=== PATIENT | female | born 1965 | race Caucasian/White ===

== ENCOUNTER 2016-11-16 12:21 | Observation (INO) ==
[2016-11-16 13:09] LABS: Basophils # 0.1 K/mcL (0.0-0.2); Basophils % 0.5 %; Eosinophils # 0.1 K/mcL (0.0-0.6); Hematocrit 41.4 % (35.3-44.9); Immature Granulocytes % 0.5 % (0-4); Lymphocytes # 2.6 K/mcL (0.6-4.6); Lymphocytes % 20.1 %; Mean Corpuscular HGB Conc 31.4 g/dL (31.6-35.5); Mean Corpuscular Hemoglobin 27.8 pg (28.0-33.3); Mean Corpuscular Volume 88.5 fL (83.0-100.0); Mean Platelet Volume 10.4 fL (9.4-12.4); Monocytes # 0.8 K/mcL (0.0-1.3); Monocytes % 6.1 %; Neutrophils # 9.3 K/mcL (1.6-8.9); Platelet Count 253 K/mcL (140-400); Red Blood Count 4.68 M/mcL (3.82-4.97); Red Cell Distribution Width 13.9 % (11.5-14.5); Segmented Neutrophils % 71.8 %
[2016-11-16 13:21] LABS: BUN/Creatinine Ratio 11 (6-26); Blood Urea Nitrogen 12 mg/dL (7-20); Calcium 9.9 mg/dL (8.6-10.8); Carbon Dioxide 23 mEq/L (19-29); Chloride 103 mEq/L (98-109); Glucose 185 mg/dL (70-99); Osmolality,Calculated 291 (280-300); Potassium 3.6 mEq/L (3.5-4.5); Sodium 138 mEq/L (136-145); eGFR For African Americans > 60 (> 60); eGFR For Non-African Americans 55 (> 60)
--- NOTE | 2016-11-16 14:04 | Emergency Department Note ---
Disposition Clinical Impression: Chest pain Qualifiers: Chest pain type: unspecified Qualified Code(s): R07.9 - Chest pain, unspecified Disposition: Admitted As Inpatient Condition: Fair Referrals: Rolf Larkin DO [Primary Care Provider] - Forms: ED Satisfaction Letter Time of Disposition: 14:06 Chest Pain HPI - General Chief Complaint: ED Chest Pain Stated Complaint: Chest Pain Time Seen by Provider: 11/16/16 14:00 Source: patient Limitations: no limitations Vital Signs Reviewed: Yes Nursing Notes Reviewed: Yes - History of Present Illness HPI Narrative: 51-year-old female comes in complaining of chest pain. Patient states she did crack cocaine Wednesday night and Wednesday morning developed chest pain following that. She does have multiple cardiac risk factors including diabetes, hypertension, family history. No recent cardiac workup. Pt complaint: chest pain Onset (ago): day(s) Duration: intermittent Onset: during rest Pain Location: substernal, left chest Severity scale (1-10): 8 Quality: tightness Pain Radiation: none Improves with: nothing Worsens with: nothing Associated symptoms: Denies: syncope, fever, cough Treatments prior to arrival chest pain: none - Related Data Home Medications Medication Instructions Recorded Confirmed Omeprazole [PriLOSEC] 20 mg PO BIDAC 10/04/15 10/04/15 cephALEXin [Keflex] 500 mg PO QID 10/04/15 10/04/15 glipiZIDE [Glipizide] 10 mg PO BID 10/04/15 10/04/15 hydroCHLOROthiazide 50 mg PO QAM 10/04/15 10/04/15 [Hydrochlorothiazide] Previous Rx's Medication Instructions Recorded Albuterol Sulfate [Albuterol 2 puff IH Q4HR PRN #1 unit 07/13/16 Inhaler] Dicyclomine [Bentyl] 10 mg PO QID PRN #40 capsule 10/16/16 Ondansetron ODT [Zofran ODT] 4 mg SL Q6HR PRN #14 tab.rapdis 10/16/16 Allergies Allergy/AdvReac Type Severity Reaction Status Date / Time No Known Allergies Allergy Verified 10/16/16 14:01 All systems ED: reviewed and negative except as stated. Constitutional: Denies: fever, chills, weakness, weight change Eyes: Denies: eye pain, eye discharge, vision change ENT ED: Denies: ear pain, throat pain, dental pain, hearing loss, epistaxis, congestion, dysphagia Cardiovascular: Reports: chest pain. Denies: palpitations, dyspnea on exertion , edema, syncope Respiratory: Denies: cough, dyspnea, wheezes, hemoptysis, stridor Gastrointestinal: Denies: abdominal pain, nausea, vomiting, diarrhea, constipation, hematemesis, melena, hematochezia Genitourinary: Denies: dysuria, frequency, hematuria, discharge Musculoskeletal: Denies: back pain, neck pain, arthralgia, myalgia Integumentary: Denies: rash, abrasion, lesions Neurological: Denies: headache, weakness, numbness, paresthesias, confusion, abnormal gait, vertigo Psychiatric: Denies: anxiety, depression, suicidal thoughts, homicidal thoughts , auditory hallucinations, visual hallucinations Endocrine: Denies: fatigue Hematological/Lymphatic: Denies: easy bleeding, easy bruising Allergic/Immunologic: Denies: facial swelling, urticaria Chest Pain PMH - Past Medical History Medical history: Reports: arthritis, COPD, diabetes, hypertension, liver disease , myocardial infarction, other Psychiatric history: Reports: depression, PTSD 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 - Social History Smoking Status: Former smoker Alcohol use: Reports: none Drug use: Reports: cocaine Physical Exam - General Limitations: no limitations General appearance: alert - Head Head exam: atraumatic, normocephalic, normal inspection - Eye Eye exam: Present: normal appearance, PERRL, EOMI - ENT ENT exam: normal exam, normal oropharynx, mucous membranes moist - Neck Neck exam: Present: normal inspection, full ROM, trachea midline - Chest Chest inspection: Present: normal inspection, symmetric chest wall rise - Respiratory Respiratory exam: Present: normal lung sounds bilaterally - Cardiovascular Cardiovascular exam: Present: regular rate, normal rhythm, normal heart sounds - Abdominal Exam Abdominal exam: Present: soft, Non-Tender. Absent: tenderness, distention, guarding, rebound, rigidity - Extremities Exam Extremities exam: Present: normal inspection, full ROM. Absent: tenderness, pedal edema - Expanded Lower Extremity Exam Neurovascular/Tendon exam: Absent: motor deficit, sensory deficit, tendon deficit Gait: observed and normal - Back Exam Back exam: Present: normal inspection, full ROM. Absent: tenderness - Neurological Exam Neurological exam: Present: alert, oriented X3 - Psychiatric Psychiatric exam: Present: normal affect, normal mood - Skin Skin exam: Present: warm, dry, intact, normal color Course - Reevaluation(s) Reevaluation #1: 51-year-old with multiple risk factors including cocaine use he developed some chest pain. Patient will be admitted for further evaluation and treatment. Time: 15:35 - Consultations Consultation #1: Discussed with Dr. Hanson, admit Time: 15:36 Vital Signs Temperature 97.8 F 11/16/16 12:26 Pulse Rate 106 11/16/16 12:26 Respiratory Rate 20 11/16/16 12:26 Blood Pressure 127/86 11/16/16 12:26 O2 Sat by Pulse Oximetry 98 11/16/16 12:26 Temperature 97.8 F 11/16/16 12:26 Pulse Rate 79 11/16/16 15:29 Respiratory Rate 16 11/16/16 15:29 Blood Pressure 94/70 11/16/16 15:29 O2 Sat by Pulse Oximetry 96 11/16/16 15:29 Oxygen Delivery Oxygen Delivery Room Air Chest Pain - Lab Data Result diagrams: 11/16/16 13:02 11/16/16 13:02 Lab Results 11/16/16 11/16/16 11/16/16 Range/Units 13:02 13:02 13:02 WBC 13.0 H (4.3-11.1) K/mcL RBC 4.68 (3.82-4.97) M/mcL Hgb 13.0 (11.5-15.4) g/dL Hct 41.4 (35.3-44.9) % MCV 88.5 (83.0-100.0) fL MCH 27.8 L (28.0-33.3) pg MCHC 31.4 L (31.6-35.5) g/dL RDW 13.9 (11.5-14.5) % Plt Count 253 (140-400) K/mcL MPV 10.4 (9.4-12.4) fL Immature Gran % 0.5 (0-4) % Seg Neutrophils % 71.8 % Lymphocytes % 20.1 % Monocytes % 6.1 % Eosinophils % 1.0 % Basophils % 0.5 % Neutrophils # 9.3 H (1.6-8.9) K/mcL Lymphocytes # 2.6 (0.6-4.6) K/mcL Monocytes # 0.8 (0.0-1.3) K/mcL Eosinophils # 0.1 (0.0-0.6) K/mcL Basophils # 0.1 (0.0-0.2) K/mcL Sodium 138 (136-145) mEq/L Potassium 3.6 (3.5-4.5) mEq/L Chloride 103 (98-109) mEq/L Carbon Dioxide 23 (19-29) mEq/L BUN 12 (7-20) mg/dL Creatinine 1.07 (0.57-1.11) mg/dL Est GFR ( Amer) > 60 (> 60) Est GFR (Non-Af Amer) 55 L (> 60) BUN/Creatinine Ratio 11 (6-26) Glucose 185 H (70-99) mg/dL Calculated Osmolality 291 (280-300) Calcium 9.9 (8.6-10.8) mg/dL Troponin I 0.00 (0-0.03) ng/mL - EKG Data EKG attestation: Yes I reviewed and interpreted this EKG. EKG shows normal: sinus rhythm Rate: normal Rhythm: NSR Interpretation: no acute changes Heart Score - Score History: Moderately Suspicious EKG: Non Specific repolarisation Disturbance Age: 45-65 Risk Factors: Equal/Greater than 3 risk factor or history of atherosclerotic disease Troponin: Less than normal limit HEART Score Total: 5
[2016-11-16 15:43] LABS: Bilirubin,Urine Negative (Negative); Blood,Urine Trace (Negative); Clarity,Urine Clear (Clear); Color,Urine Yellow (Yellow); Glucose,Urine (UA) Normal (Normal); Ketones,Urine Negative (Negative); Leukocyte Esterase,Urine Negative (Negative); Nitrite,Urine Negative (Negative); PH,Urine 5.5 pH Units (5.0-8.0); Protein,Urine Negative (Neg-Trace); Specific Gravity,Urine 1.019 (1.010-1.025); Urobilinogen,Urine Normal (Normal)
[2016-11-16 15:44] LABS: Bacteria,Urine None Seen per hpf (None-Few); Hyaline Casts,Urine None Seen per lpf (None-Few); RBC,Urine 0-3 per hpf (0-3); Squamous Epithelial Cell,Urine Many per lpf (None-Few); WBC,Urine 0-3 per hpf (0-3)
[2016-11-16 15:49] LABS: Amphetamine Screen,Urine Negative ng/mL (Cutoff=1000); Barbiturate Screen,Urine Negative ng/mL (Cutoff=200); Benzodiazepines Screen,Urine Negative ng/mL (Cutoff=200); Cannabinoid Screen,Urine Negative ng/mL (Cutoff = 50); Cocaine Screen,Urine Positive ng/mL (Cutoff= 300); Opiate Screen,Urine Negative ng/mL (Cutoff=300); Phencyclidine Screen,Urine Negative ng/mL (Cutoff=25)
[2016-11-16] MEDS ORDERED: Artificial Tears SOLN 15 ML BOTTLE OP PRN (17:55)
[2016-11-16] MEDS ORDERED: Naloxone 0.4 MG/ML INJ IVP PRN (18:06)
[2016-11-16] MEDS ORDERED: *HR* HYDROcodone/Acet 5/325 mg TABLET PO PRN (18:06)
[2016-11-16] MEDS ORDERED: Acetaminophen 325 MG TABLET PO PRN (18:06)
[2016-11-16] MEDS ORDERED: Ondansetron 4 MG/2 ML VIAL IVP PRN (18:06)
--- NOTE | 2016-11-16 18:10 | Event Note ---
Date of Encounter: 11/16/16 Time of Encounter: 17:00 I personally interviewed and examined this pt. I agree with the findings, assessment and plan of POOJA Dewey. Will add on a D Dimer and if positive order a CT chest. Agree with stress test if PE ruled out. Pt counselled about cardiac risk and other health risks associated with cocaine use. She also has a mild leukocytosis but no sx of infection. She denies using IV drugs.
--- NOTE | 2016-11-16 18:37 | Internal Med History&Physical ---
Date of Encounter: 11/16/16 Time of Encounter: 16:00 Assessment and Plan (1) Chest pain Current visit: Yes Status: Acute Patient presents with acute chest pain after smoking crack cocaine on Wednesday and Wednesday. Patient states she did the same thing in 2000 and was diagnosed with an CA. Patient's risk factors include diabetes, hypertension, obesity, and previous myocardial infarction. Patient denies any recent cardiac work-up. Patient describes chest pain as sharp and stabbing and centralized in her chest with radiation to her back that began yesterday. Initial troponin is 0.00. Will trend x2. Echocardiogram ordered. Patient placed on continuous cardiac telemetry and supplemental O2 with SpO2 monitoring. Cardiology consult ordered. Qualifiers: Chest pain type: other chest pain Qualified Code(s): R07.89 - Other chest pain; R07.8 - Other chest pain (2) Leukocytosis Current visit: Yes Status: Acute Patient presents with acute leukocytosis on admission with WBC of 13.0 which is most likely reactionary due to recent two-day use of crack cocaine. Patient is asymptomatic for infection and denies recent illness. Blood cultures x2 ordered. U/A ordered and is not indicative for culture. Will monitor blood culture results and administer antibiotics if warranted. Follow-up labs ordered. Qualifiers: Leukocytosis type: unspecified Qualified Code(s): D72.829 - Elevated white blood cell count, unspecified (3) Cocaine abuse Current visit: Yes Status: Chronic Patient reports hx of cocaine abuse with most recent being Wednesday and Wednesday. Patient states she smoked crack cocaine for two days and developed chest pain. She reports same situation in 2000 when she had her CA when she developed chest pain post-cocaine use. Patient states she is currently in rehab. SW consult ordered to assess patient's needs for post-discharge. (4) COPD (chronic obstructive pulmonary disease) Current visit: Yes Status: Chronic Patient presents with history of chronic COPD. Currently stable. Will administer DuoNeb's every 6 PRN for SOB as needed. Qualifiers: COPD type: unspecified COPD Qualified Code(s): J44.9 - Chronic obstructive pulmonary disease, unspecified (5) Diabetes Current visit: Yes Status: Chronic Patient presents with history of chronic diabetes controlled by oral antihyperglycemic medications. Will hold patient's by mouth medications and administer low-dose correction insulin sliding scale with hypoglycemic protocol. Blood glucose measuring ACHS. A1c ordered in a.m. labs. Qualifiers: Diabetes mellitus type: type 2 Diabetes mellitus complication status: with unspecified complications Diabetes mellitus halfway insulin use: without terminal superintendent use Qualified Code(s): E11.8 - Type 2 diabetes mellitus with unspecified complications (6) GERD (gastroesophageal reflux disease) Current visit: Yes Status: Chronic Patient stands with history of chronic gastroesophageal reflux disease. IVP Zofran every 6 when necessary and IVP Protonix 40 mg twice a day ordered. Qualifiers: Esophagitis presence: esophagitis presence not specified Qualified Code(s) : K21.9 - Gastro-esophageal reflux disease without esophagitis (7) HTN (hypertension) Current visit: Yes Status: Chronic Patient presents with history of chronic hypertension. Will monitor patient and vital signs and continue patient's hydrochlorothiazide. Qualifiers: Hypertension type: essential hypertension Qualified Code(s): I10 - Essential (primary) hypertension (8) DVT prophylaxis Current visit: Yes Status: Acute Patient to be placed on DVT prophylaxis due to current admission protocol and bed rest status. Heparin 5,000 units SQ Q8 ordered. Internal Medicine - H&P: HPI Chief complaint: Chest pain Admitted From: Emergency Dept Plans for Post Hospital Care: Home History of present illness: Ms. Nur is a 51 year old female with medical history of arthritis, COPD, diabetes with oral antihyperglycemic control, hypertension, GERD, fatty liver disease, and previous myocardial infarction in 2000 presents from the ED with chief complaint of chest pain that she describes as sharp and stabbing and centralized in her chest with radiation to her back that began yesterday. Patient states it is similar to 2000 when she had her heart attack. Patient reports smoking crack cocaine Wednesday and Wednesday which was followed by chest pain. She states in 2001 she also smoked crack cocaine prior to the chest pain and heart attack. Patient has had no recent cardiac workup and her risk factors include diabetes, hypertension, and previous CA. Patient reports chest pain but denies fever, chills, weakness, vision changes, unusual bleeding, palpitations, dyspnea, cough, abdominal pain, nausea, vomiting, diarrhea, constipation, weakness, numbness, headache, lightheadedness, presyncope, or syncope. Upon admission, patient's vital signs include temperature of 97.8F, pulse rate of 106, respiratory rate of 20, BP of 127/86, and SPO2 of 90% on room air. Follow-up labs showed temperature of 90 7.9F, heart rate of 107, respirations of 18, BP of 130/89, and SPO2 98% on room air. Abnormal labs include WBC of 13.0 and glucose of 185. Patient is currently asymptomatic of infection and patient denies any recent illness. Blood cultures 2 and urine culture/tox screen ordered. Urine culture is not indicated for culture and tox screen positive for cocaine. 2 view CXR today shows no acute process. On examination, patient's heart rate is RRR and lungs are clear bilaterally on auscultation. There is no pedal edema present. Patient is hemodynamically stable and reports only mild chest discomfort in the epigastric area. Information taken from patient, chart review, and previous medical records and imaging. Time spent with patient greater than 40 minutes. Past Med Surg Social Fam HX - Past Medical History Source: patient, old records reviewed Medical history: arthritis, COPD, diabetes, hypertension, liver disease, myocardial infarction, other Psychiatric history: depression, PTSD - Past Surgical History Surgical History: , cholecystectomy - Social History Smoking Status: Former smoker Smokeless Tobacco Status: No Alcohol use: none Drug use: cocaine Current living situation: Home Activity Level: Independent ambulation Recent Out of Country Travel Within the Last 8 Weeks: No Exposure or Possible Exposure to Illness During Travel: No - Family History Mother Race: Family Member Ethnicity: Non- Living Status: Age at : 63 Cause of : Pancreatic cancer Hx Family Cancer: Yes (Pancreatic, Bone) Hx Family Endocrine Disorder: Yes (DM) Father Race: Family Member Ethnicity: Non- Living Status: Age at : 51 Cause of : HF Hx Family Cardiac Disorders: Yes (Stroke, HF, CA, HTN) Hx Family Endocrine Disorder: Yes (Liver disease) Brother Race: Family Member Ethnicity: Non- Living Status: Age at : 62 Cause of : HF Hx Family Cardiac Disorders: Yes (HF) Hx Family Endocrine Disorder: Yes (DM) Sister Race: Family Member Ethnicity: Non- Living Status: Hx Family Cardiac Disorders: Yes (HTN) Hx Family Endocrine Disorder: Yes (DM) Hx Family Musculoskeletal Disorders: Yes (Arthritis) Internal Medicine - H&P: Meds Albuterol Sulfate [Albuterol Inhaler] 2 puff IH Q4HR PRN #1 unit 07/13/16 [Rx] BuPROPion SR (12 HR) [Wellbutrin SR] 150 mg PO DAILY 11/16/16 [History] Fluticasone Propionate Nasal [Flonase] 50 mcg NS DAILY 11/16/16 [History] Gabapentin [Neurontin] 600 mg PO TID 11/16/16 [History] Lubiprostone [Amitiza] 8 mcg PO BID 11/16/16 [History] Melatonin 5 - 10 mg PO HS PRN 11/16/16 [History] Oxybutynin [Ditropan] 5 mg PO BID 11/16/16 [History] Pantoprazole Sodium [Protonix] 40 mg PO DAILY 11/16/16 [History] Polyvinyl Alcohol [Artificial Tears] 2 drop OP Q6H PRN 11/16/16 [History] hydroCHLOROthiazide [Hydrochlorothiazide] 12.5 mg PO DAILY 11/16/16 [History] metFORMIN [Glucophage] 500 mg PO 0800 11/16/16 [History] 3 Allergy/AdvReac Type Severity Reaction Status Date / Time No Known Allergies Allergy Verified 10/16/16 14:01 All Systems PM: A 10-system review of systems was performed and is negative for pertinent findings except as documented above in the HPI. - Constitutional Constitutional: no chills, no fever(s), no night sweats - EENT Eyes: no change in vision, no discharge, no pain, no photophobia Ears: no ear discharge, no ear pain, no tinnitus Nose, mouth and throat: no dysphagia, no nasal discharge, no neck pain, no sore throat - Breasts Breasts: as per HPI - Cardiovascular Cardiovascular ROS IM: as per HPI, chest pain - Respiratory Respiratory: no cough, no dyspnea, no wheezing, no excessive phlegm production - Gastrointestinal Gastrointestinal: no abdominal pain, no diarrhea, no hematemesis, no hematochezia, no melena, no nausea, no vomiting - Genitourinary Genitourinary: no change in urinary stream, no dysuria, no flank pain, no hematuria Menstruation: as per HPI - Musculoskeletal Musculoskeletal ROS IM: no numbness, no tingling - Integumentary Integumentary IM: no rash, no unusual bruising - Neurological Neurological ROS: no confusion, no convulsions, no focal weakness, no numbness, no tingling, no tremor(s) - Psychiatric Psychiatric: as per HPI - Endocrine Endocrine IM: as per HPI - Hematologic/Lymphatic Hematologic/Lymphatic: no easy bruising - Allergic/Immunologic Allergic/Immunologic: as per HPI - Constitutional Vitals: Temp Pulse Resp BP Pulse Ox 97.9 F 107 18 130/89 98 11/16/16 17:48 11/16/16 17:48 11/16/16 17:48 11/16/16 17:48 11/16/16 17:48 General appearance: Present: cooperative, mild distress, A&O X 3, morbidly obese , pleasant, answers questions appropriately - Head Head exam: Present: atraumatic, normocephalic - Eye Eye exam: Present: PERRL, conjuntiva pink, sclera anicteric Pupils: Present: PERRL - ENT ENT exam: Present: normal exam, normal external ear exam - Neck Neck exam general surgery: Present: normal inspection, supple, trachea midline - Respiratory Respiratory exam: Present: CTAB. Absent: accessory muscle use, rales, rhonchi, wheezes - Cardiovascular Cardiovascular exam: Present: RRR, +S1, +S2. Absent: diastolic murmur, gallop, rubs, systolic murmur - GI/Abdominal GI/Abdominal exam: Present: normal bowel sounds, soft, no peritoneal signs. Absent: distended, tenderness - Rectal Rectal exam: Present: deferred - Additional comments: exam deferred. - Extremities Exam Extremities exam: Present: warm, radial pulses palpable and symmetrical. Absent : calf tenderness, cyanotic, pedal edema - Back Exam Back exam: Present: normal inspection - Neurological Exam Neurological exam: Present: CN II-XII intact, oriented X3, no focal deficits. Absent: pronater drift, facial droop, speech deficit - Psychiatric Psychiatric exam: Present: normal affect, normal mood - Skin Skin exam: Present: dry, intact Internal Med - H&P Results - Labs CBC & Chem 7: 11/16/16 13:02 11/16/16 13:02 - EKG Data EKG shows normal: sinus rhythm - EKG Data Prior EKG available for review: no EKG comments: 11/16/16 19:05 EKG dated 09/18/17 shows sinus rhythm with low QRS voltage in precordial leads. Pattern consistent with pulmonary disease. - Diagnostic Studies Chest x-ray Additional comments: Impressions Chest X-Ray 11/16/16 12:36 IMPRESSION: No acute process. D/ / James Manrique MD / James Manrique MD Interpreting Provider: James Manrique MD
[2016-11-16] MEDS ORDERED: Ipratropium/Albuterol Neb 3 ML IH PRN (19:19)
[2016-11-16] MEDS ORDERED: Melatonin 3 MG TABLET PO PRN (21:00)
[2016-11-16] MEDS: *HR* Heparin 5,000 UNIT/ML VIAL SQ SCH (21:12)
[2016-11-16] MEDS: Pantoprazole 40 MG VIAL IVP SCH (21:12)
[2016-11-16] MEDS: Gabapentin 300 MG CAPSULE PO SCH (21:12)
[2016-11-16] MEDS: (Lubiprostone [Amitiza] 8 MCG) PO SCH (21:21)
--- NOTE | 2016-11-17 06:09 | Electrocardiograph Report ---
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
[2016-11-17] MEDS: *HR* Heparin 5,000 UNIT/ML VIAL SQ SCH ×3 (06:38→21:59)
[2016-11-17 07:03] LABS: Prothrombin Time 11.1 Seconds (9.4-12.1)
[2016-11-17 07:05] LABS: Activated Partial Thrombo Time 25.8 Seconds (26.0-36.0); Basophils # 0.1 K/mcL (0.0-0.2); Basophils % 0.6 %; Eosinophils # 0.1 K/mcL (0.0-0.6); Eosinophils % 1.3 %; Hematocrit 35.9 % (35.3-44.9); Hemoglobin 11.6 g/dL (11.5-15.4); Immature Granulocytes % 0.6 % (0-4); Lymphocytes # 2.9 K/mcL (0.6-4.6); Mean Corpuscular HGB Conc 32.3 g/dL (31.6-35.5); Mean Corpuscular Hemoglobin 28.8 pg (28.0-33.3); Mean Corpuscular Volume 89.1 fL (83.0-100.0); Mean Platelet Volume 11.4 fL (9.4-12.4); Monocytes # 0.6 K/mcL (0.0-1.3); Monocytes % 6.9 %; Neutrophils # 5.3 K/mcL (1.6-8.9); Platelet Count 197 K/mcL (140-400); Red Blood Count 4.03 M/mcL (3.82-4.97); Segmented Neutrophils % 58.6 %
[2016-11-17 07:08] LABS: Hemoglobin A1C 6.3 %
[2016-11-17 07:17] LABS: Alanine Aminotransferase 18 Units/L (0-55); Albumin 3.3 g/dL (3.5-5.0); Alkaline Phosphatase 77 Units/L (38-126); Aspartate Amino Transferase 11 Units/L (5-34); BUN/Creatinine Ratio 12 (6-26); Bilirubin,Total 0.2 mg/dL (0.2-1.2); Blood Urea Nitrogen 14 mg/dL (7-20); Calcium 9.1 mg/dL (8.6-10.8); Carbon Dioxide 26 mEq/L (19-29); Chloride 103 mEq/L (98-109); Chol/HDL Ratio 5.3 (0-4.9); Cholesterol 137 mg/dL (< 200); Globulin 3.2 g/dL (2.4-3.5); Glucose 207 mg/dL (70-99); HDL Cholesterol 26 mg/dL (40-59); LDL Cholesterol,Calculated 58 mg/dL (0-99); Magnesium 1.6 mg/dL (1.6-2.6); Osmolality,Calculated 299 (280-300); Potassium 3.1 mEq/L (3.5-4.5); Sodium 141 mEq/L (136-145); Total Protein 6.5 g/dL (6.0-8.3); Triglycerides 267 mg/dL (< 150); eGFR For African Americans > 60 (> 60); eGFR For Non-African Americans 50 (> 60)
[2016-11-17] MEDS ORDERED: 0.9 % Sodium Chloride 1,000 ML IVC ONE (08:09)
[2016-11-17] MEDS: hydroCHLOROthiazide 25 MG TABLET PO SCH (09:28)
[2016-11-17] MEDS: Pantoprazole 40 MG VIAL IVP SCH ×2 (09:28→20:16)
[2016-11-17] MEDS: BuPROPion SR (12 HR) 150 MG TABLET PO SCH (09:29)
[2016-11-17] MEDS: Gabapentin 300 MG CAPSULE PO SCH ×3 (09:29→20:16)
[2016-11-17] MEDS: Aspirin Enteric Coated 81 MG Tablet PO SCH (09:29)
[2016-11-17] MEDS: Fluticasone Propionate Nasal 50 MCG/SPRAY BOTTLE NS SCH (09:29)
[2016-11-17] MEDS: (Lubiprostone [Amitiza] 8 MCG) PO SCH ×2 (09:29→22:06)
--- NOTE | 2016-11-17 14:07 | Internal Med Progress Note ---
Date of Encounter: 11/17/16 Time of Encounter: 14:05 - Assessment and plan (1) CAD (coronary artery disease) Current Visit: Yes Status: Acute Assessment and plan: with hx remote MO. Now with chest pain after smoking crack-cocaine. ASA started inpatient. Last stress test 2009. Serial troponins negative. 11/16/2016 TTE with EF 60%. Stress test pending. Continue ASA. Consult cardiology if needed. Qualifiers: Coronary Disease-Associated Artery/Lesion type: [place] artery [place] vs. transplanted heart: [place] heart Associated angina: with unstable angina Qualified Code(s): I25.110 - Atherosclerotic heart disease of [place] coronary artery with unstable angina pectoris (2) Hypokalemia Current Visit: Yes Status: Acute Assessment and plan: K 3.1; replaced. Monitor repeat CMP (3) COPD (chronic obstructive pulmonary disease) Current Visit: Yes Status: Chronic Assessment and plan: per hx. Hgb A1c 6%. Holding home oral hypogylcemics. SSI. Monitor blood sugars and titrate PRN Qualifiers: COPD type: unspecified COPD Qualified Code(s): J44.9 - Chronic obstructive pulmonary disease, unspecified (4) Diabetes Current Visit: Yes Status: Chronic Assessment and plan: per hx. No evidence of exacerbation. Cont home inhalers. Qualifiers: Diabetes mellitus type: type 2 Diabetes mellitus complication status: without complication Diabetes mellitus exterminator termite insulin use: without exterminator termite use Qualified Code(s): E11.9 - Type 2 diabetes mellitus without complications (5) Cocaine abuse Current Visit: Yes Status: Chronic Assessment and plan: UDS positive for cocaine. Patient admitted to using prior to presentation. Cessations strongly advised (6) DVT prophylaxis Current Visit: Yes Status: Acute Assessment and plan: heparin - Time Spent With Patient 25 - 35 minutes - Subjective Interval history: Seen and examined at bedside, says she is still having intermittent chest pain. Chest pain is sharp, localized to mid-sternum, radiates to left shoulder. Nothing makes better or worse. No SOB. A 10 point ROS was obtained and negative unless otherwise noted above - Constitutional Vitals: Temp Pulse Resp BP Pulse Ox 97.5 F L 88 16 110/69 98 11/17/16 11:43 11/17/16 11:43 11/17/16 11:43 11/17/16 11:43 11/17/16 11:43 General appearance: Present: cooperative, mild distress, A&O X 3, morbidly obese , pleasant, answers questions appropriately - Head Head exam: Present: atraumatic, normocephalic - Eye Eye exam: Present: PERRL, conjuntiva pink, sclera anicteric Pupils: Present: PERRL - Neck Neck exam general surgery: Present: supple, trachea midline. Absent: lymphadenopathy - Respiratory Respiratory exam: Present: CTAB. Absent: accessory muscle use, rales, rhonchi, wheezes - Cardiovascular Cardiovascular exam: Present: RRR, +S1, +S2. Absent: diastolic murmur, gallop, rubs, systolic murmur - GI/Abdominal GI/Abdominal exam: Present: normal bowel sounds, soft, no peritoneal signs. Absent: distended, tenderness - Extremities Exam Extremities exam: Present: warm, radial pulses palpable and symmetrical. Absent : calf tenderness, cyanotic, pedal edema - Neurological Exam Neurological exam: Present: CN II-XII intact, oriented X3, no focal deficits. Absent: pronater drift, facial droop, speech deficit - Skin Skin exam: Present: dry, intact Internal Medicine: Result - Labs CBC & Chem 7: 11/17/16 04:56 11/17/16 04:56 Labs: Short CBC 11/17/16 Range/Units 04:56 WBC 9.1 (4.3-11.1) K/mcL Hgb 11.6 (11.5-15.4) g/dL Hct 35.9 (35.3-44.9) % Plt Count 197 (140-400) K/mcL Neutrophils # 5.3 (1.6-8.9) K/mcL BMP 11/17/16 04:56 Sodium 141 Potassium 3.1 L Chloride 103 Carbon Dioxide 26 BUN 14 Creatinine 1.15 H Glucose 207 H Calcium 9.1 Cardiac Enzymes 11/16/16 11/17/16 11/17/16 Range/Units 21:32 04:56 11:36 Troponin I 0.00 0.00 0.00 (0-0.03) ng/mL Liver Function 11/17/16 Range/Units 04:56 Total Bilirubin 0.2 (0.2-1.2) mg/dL AST 11 (5-34) Units/L ALT 18 (0-55) Units/L Alkaline Phosphatase 77 (38-126) Units/L Albumin 3.3 L (3.5-5.0) g/dL - ABG Interpretation ABG results: PT/INR, D-dimer PT 11.1 Seconds (9.4-12.1) 11/17/16 04:56 D-Dimer 424 ng/mLFEU (0-500) 11/17/16 00:32 Consult Discharge Plan - Plan Referrals: Rolf Larkin DO [Primary Care Provider] -
[2016-11-17] MEDS ORDERED: *HR* Dextrose 50 % in Water (Syg) 50 ML SYRINGE IVP PRN (14:10)
[2016-11-17] MEDS ORDERED: Dextrose Gel 15 GM PO PRN ×2 (14:10)
[2016-11-17] MEDS ORDERED: D5% in Water 1,000 ML IVC PRN (14:10)
[2016-11-17] MEDS: Insulin LISPRO 300 UNITS/3 ML VIAL SQ SCH ×2 (16:54→22:00)
[2016-11-18] MEDS: *HR* Heparin 5,000 UNIT/ML VIAL SQ SCH ×2 (06:28→15:09)
[2016-11-18] MEDS ORDERED: Regadenoson 0.4 MG/5 ML SYRINGE IVP ONE (06:50)
[2016-11-18 06:52] LABS: Alanine Aminotransferase 18 Units/L (0-55); Albumin 3.2 g/dL (3.5-5.0); Alkaline Phosphatase 73 Units/L (38-126); Aspartate Amino Transferase 10 Units/L (5-34); BUN/Creatinine Ratio 16 (6-26); Bilirubin,Total 0.2 mg/dL (0.2-1.2); Blood Urea Nitrogen 16 mg/dL (7-20); Calcium 8.9 mg/dL (8.6-10.8); Carbon Dioxide 27 mEq/L (19-29); Chloride 103 mEq/L (98-109); Globulin 3.2 g/dL (2.4-3.5); Glucose 178 mg/dL (70-99); Osmolality,Calculated 298 (280-300); Potassium 3.5 mEq/L (3.5-4.5); Sodium 141 mEq/L (136-145); Total Protein 6.4 g/dL (6.0-8.3); eGFR For African Americans > 60 (> 60); eGFR For Non-African Americans 59 (> 60)
[2016-11-18 06:59] LABS: Hemoglobin 11.3 g/dL (11.5-15.4); Mean Corpuscular HGB Conc 32.3 g/dL (31.6-35.5); Mean Corpuscular Hemoglobin 28.5 pg (28.0-33.3); Mean Corpuscular Volume 88.4 fL (83.0-100.0); Mean Platelet Volume 11.1 fL (9.4-12.4); Platelet Count 196 K/mcL (140-400); Red Blood Count 3.96 M/mcL (3.82-4.97); Red Cell Distribution Width 13.6 % (11.5-14.5)
[2016-11-18] MEDS: Insulin LISPRO 300 UNITS/3 ML VIAL SQ SCH ×3 (08:59→17:23)
[2016-11-18] MEDS: Aspirin Enteric Coated 81 MG Tablet PO SCH (09:11)
[2016-11-18] MEDS: Gabapentin 300 MG CAPSULE PO SCH ×2 (09:11→15:10)
[2016-11-18] MEDS: hydroCHLOROthiazide 25 MG TABLET PO SCH (09:11)
[2016-11-18] MEDS: BuPROPion SR (12 HR) 150 MG TABLET PO SCH (09:11)
[2016-11-18] MEDS: (Lubiprostone [Amitiza] 8 MCG) PO SCH (09:12)
[2016-11-18] MEDS: Fluticasone Propionate Nasal 50 MCG/SPRAY BOTTLE NS SCH (09:12)
[2016-11-18] MEDS: Pantoprazole 40 MG VIAL IVP SCH (09:12)
--- NOTE | 2016-11-18 12:43 | Nuclear Medicine Stress Report ---
Regadenoson Nuclear 2 day Name: Paige Nur Date of Study: 11/17/2016 Date: 1965 Ht: 61.0 in Medical Record#: [id number] Age: 51 Wt: 232.0 lb Gender: Female Order #: [id number] Location: [facility] Room: [facility] Supervising Provider: Luis Fernando Hackett CNP Reading Physician: Kyler Wells DO, FACC, FASNC Ordering Physician: Shira Salas CNP Stress Technologist: Any Bishop, JUANCHO Medical Review Specialist: Kristy Ferreira Indications: Chest Pain Impression: Pharmacologic stress ECG is negative for ischemia at level of heart rate achieved. Chest discomfort reported during Lexiscan infusion. Gated EF = 72%. Perfusion imaging was negative for ischemia or infarct. History: Hypertension Diabetes Stress Test Summary: Stress Test Type: Pharmacologic Regadenoson 0.4mg/5ml given IV Baseline Information: Initial Heart Rate: 80 Blood Pressure: 110/80 Stress Information: Test Terminated Due to (primary): As per protocol Maximum Blood Pressure: 114/82 Maximum Heart Rate: 118 Percent Maximum Heart Rate Achieved: 69 Double Product: [id number] METS Reached: 1 Symptoms: No change in chest pain Nuclear Summary: SPECT myocardial perfusion imaging using Tc99m Sestamibi given intravenously was performed at rest and following cardiac stress testing. The resting images were obtained following initial dose of 33 mCi. Following stress an additional dose of 35.5 mCi was given at peak exercise or 30 seconds post regadenoson infusion. Medication Given: Time Medication Dose Units Route Findings: Stress Note * Resting ECG demonstrated normal sinus rhythm. * No baseline arrhythmias were noted. * Pharmacologic stress ECG is negative for ischemia at level of heart rate achieved. * No arrhythmias were noted during stress. * Chest discomfort reported during Lexiscan infusion. * Normal hemodynamic responses to pharmacologic stress. Study Quality * Study quality is good. Gated EF % * Gated EF = 72%. Left Ventricle * The left ventricle is not dilated. LVEDV = 69 mL. NORMALS * Normal wall motion. * Normal Segmental Perfusion in rest. * Normal segmental perfusion in stress. TID * No evidence of transient ischemic dilatation. TID ratio = 1.24. Lung Uptake * There is no evidence of increase lung uptake. Updated by Kyler Wells DO, FACC, FASE FASMARK on 11/18/2016 12:37:57 PM electronically signed on 11/18/2016 12:39:10 PM with status of Final
--- NOTE | 2016-11-18 15:28 | Discharge Summary ---
Date of Encounter: 11/18/16 Time of Encounter: 15:26 - Discharge Diagnosis (1) CAD (coronary artery disease) Priority: Primary Status: Acute Comments: with hx remote [place]. Now with chest pain after smoking crack-cocaine. ASA started inpatient. Serial troponins negative. EKG without acute ST changes. TTE with EF 60%. 11/18/2016 stress test negative for ischemia or infarct. LDL at goal. Continue ASA. Can follow up outpatient. Qualifiers: Coronary Disease-Associated Artery/Lesion type: shawnee artery [place] vs. transplanted heart: shawnee heart Associated angina: with unstable angina Qualified Code(s): I25.110 - Atherosclerotic heart disease of shawnee coronary artery with unstable angina pectoris (2) COPD (chronic obstructive pulmonary disease) Priority: Primary Status: Acute Comments: per hx. No evidence of exacerbation. Cont home inhalers Qualifiers: COPD type: unspecified COPD Qualified Code(s): J44.9 - Chronic obstructive pulmonary disease, unspecified (3) Diabetes Priority: Primary Status: Acute Comments: per hx. Hgb A1c 6%. Blood sugars controlled while inpatient. Resume home regimen at discharge. Can follow up with PCP. 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 Patient admitted to using prior to presentation. Cessation strongly advised (5) DVT prophylaxis Priority: Secondary Status: Chronic Comments: heparin - Discharge Medications Prescriptions: Aspirin Enteric Coated [Aspirin EC] 81 mg PO DAILY #30 tablet.dr Home Medications: Albuterol Sulfate [Albuterol Inhaler] 2 puff IH Q4HR PRN #1 unit 07/13/16 [Rx] BuPROPion SR (12 HR) [Wellbutrin SR] 150 mg PO DAILY 11/16/16 [History] Fluticasone Propionate Nasal [Flonase] 50 mcg NS DAILY 11/16/16 [History] Gabapentin [Neurontin] 600 mg PO TID 11/16/16 [History] Lubiprostone [Amitiza] 8 mcg PO BID 11/16/16 [History] Melatonin 5 - 10 mg PO HS PRN 11/16/16 [History] Oxybutynin [Ditropan] 5 mg PO BID 11/16/16 [History] Pantoprazole Sodium [Protonix] 40 mg PO DAILY 11/16/16 [History] Polyvinyl Alcohol [Artificial Tears] 2 drop OP Q6H PRN 11/16/16 [History] hydroCHLOROthiazide [Hydrochlorothiazide] 12.5 mg PO DAILY 11/16/16 [History] metFORMIN [Glucophage] 500 mg PO 0800 11/16/16 [History] Aspirin Enteric Coated [Aspirin EC] 81 mg PO DAILY #30 tablet. 11/18/16 [Rx] Allergies/Adverse Reactions: 3 Allergy/AdvReac Type Severity Reaction Status Date / Time No Known Allergies Allergy Verified 10/16/16 14:01 Procedures/tests Complete & Pending: Procedures Performed prior 72 hours Category Date Time Status NM sergio perf SPECT multi [NM] Routine Exams 11/17/16 11:58 Taken SP pharm nuclear stress Routine Y 11/18/16 07:05 Completed Date of admission: 11/16/16 16:19 Primary care physician: Rolf Larkin DO Consults: 11/16/16 18:08 Consult to Skilled Nursing Case Manager [CONS] Routine Reason for SW Consult: Patient is addicted to cocaine use and used Wednesday and Wednesday. States she is at a rehab facility. Please assess for needs post- discharge. Discharging clinician: Kayy Whitfield Anticipated date of discharge: 11/18/16 (38) - Patient Status Disposition: Home, Self-Care Condition: Good Functional capacity at discharge: independent ambulation - Discharge Instructions Follow Up With: Rolf Larkin DO [Primary Care Provider] - - Diet and Activity Activity: increase activity as tolerated Diet: advance to your usual diet Interval History: Seen and examined at bedside. Patient is she feels better and should like to go home today. Has not had any further chest pain, no shortness of breath. Feels back to baseline. Discussed again the need to refrain from illegal/ recreational drugs patient verbalized understanding. No chest pain, no shortness of breath all my exam. Hospital course: Ms. Nur is a 51 year old female - Time Spent with Patient Total time spent providing and/or coordinating discharge services: Greater than 30 minutes (33 minutes) - Constitutional Vitals: Temp Pulse Resp BP Pulse Ox 97.9 F 90 18 118/78 95 11/18/16 12:15 11/18/16 12:15 11/18/16 12:15 11/18/16 12:15 11/18/16 12:15 General appearance: Present: cooperative, mild distress, A&O X 3, morbidly obese , pleasant, answers questions appropriately - Head Head exam: Present: atraumatic, normocephalic - Eye Eye exam: Present: PERRL, conjuntiva pink, sclera anicteric Pupils: Present: PERRL - Neck Neck exam general surgery: Present: supple, trachea midline. Absent: lymphadenopathy - Respiratory Respiratory exam: Present: CTAB. Absent: accessory muscle use, rales, rhonchi, wheezes - Cardiovascular Cardiovascular exam: Present: RRR, +S1, +S2. Absent: diastolic murmur, gallop, rubs, systolic murmur - GI/Abdominal GI/Abdominal exam: Present: normal bowel sounds, soft, no peritoneal signs. Absent: distended, tenderness - Extremities Exam Extremities exam: Present: warm, radial pulses palpable and symmetrical. Absent : calf tenderness, cyanotic, pedal edema - Neurological Exam Neurological exam: Present: CN II-XII intact, oriented X3, no focal deficits. Absent: pronater drift, facial droop, speech deficit - Skin Skin exam: Present: dry, intact
[2016-11-18 15:34] VITALS: BP 126/77
== END 2016-11-18 18:30 | disposition home or self-care (01) ==
LOC: EMEROO 12:21 → 3BNU 12:21
PROVIDERS: ADMIT Registered Nurse; ATTEND Registered Nurse

== ENCOUNTER 2018-11-16 06:16 | Inpatient (IN) ==
[2018-11-16] MEDS ORDERED: CeFAZolin Syr 2,000MG/20 ML 2,000 MG/20 ML SYRINGE IVPB ONE (06:44)
[2018-11-16] MEDS ORDERED: Albuterol 2.5 MG/3 ML NEBULIZER IH ONE (06:44)
[2018-11-16] MEDS ORDERED: Ringers Solution, Lactated 1,000 ML IVC SCH ×2 (06:45→13:59)
[2018-11-16] MEDS ORDERED: Acetaminophen IV 1,000 MG/100 ML INFUS..BTL IVPB ONE (07:30)
[2018-11-16] MEDS ORDERED: Pregabalin 75 MG CAPSULE PO ONE (07:30)
[2018-11-16] MEDS ORDERED: Famotidine 20 MG/2 ML VIAL IVP ONE (07:30)
[2018-11-16] MEDS ORDERED: *HR* HYDROmorphone (PF) 1 MG/ML SYRINGE IVP PRN (07:31)
[2018-11-16] MEDS ORDERED: *HR* Promethazine 25 MG/ML VIAL IVP PRN (07:31)
[2018-11-16] MEDS ORDERED: *HR* OxyCODONE Immed Rel 5 MG TABLET PO PRN (07:31)
[2018-11-16] MEDS ORDERED: *HR* HYDROmorphone 2 MG TABLET PO PRN (07:31)
[2018-11-16] MEDS ORDERED: *HR* Labetalol 20 MG/4 ML SYRINGE IVP PRN (07:31)
--- NOTE | 2018-11-16 07:36 | Anesthesia Evaluation PreOp ---
Date of Encounter: 11/16/18 Time of Encounter: 07:34 - Past History Planned Operation: L5-S1 PLIF Cardiac History: HTN, Arrhythmia (WPW s/p cardiac ablation [Pt unsure if successful]) Pulmonary History: COPD, SREE Dx (Scheduled for Sleep study), Other ("Malformation of R-lung" per H&P) DITCH RIDER History: Other (Lumbar radiculopathy/L5-S1 spondylolisthesis. 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 - per PT), Diabetes Type II, Other (MO/BMI = 42) Anesthesia History: No Prior Anesthetic Complications, Past Anesthesia (Juana, Heart Surgery, x 3, T&A, Kidney stones), Problems Alcohol Use: none Drug use: cocaine Medications and Allergies Albuterol Sulfate [Proventil Inhaler] 2 puff IH Q4HR PRN #1 unit 07/13/16 [Rx] BuPROPion SR (12 HR) [Wellbutrin SR] 150 mg PO DAILY 11/16/16 [History] Oxybutynin [Ditropan] 5 mg PO TID 11/16/16 [History] hydroCHLOROthiazide [Hydrochlorothiazide] 25 mg PO DAILY 11/16/16 [History] metFORMIN [Glucophage] 500 mg PO 0800 #30 tablet 05/19/18 [Rx] Diclofenac Sodium [Voltaren] 100 gm TP BID 11/16/18 [History] Doxepin HCl 10 mg PO HS 11/16/18 [History] Gabapentin [Neurontin] 600 mg PO TID 11/16/18 [History] Ibuprofen [Ibu] 800 mg PO BID PRN 11/16/18 [History] Allergy/AdvReac Type Severity Reaction Status Date / Time No Known Allergies Allergy Verified 11/16/18 07:00 - Meds/Allergy Pre-op Review Medications Reviewed: Yes Allergies Reviewed: Yes Beta Blockers on Current Med List: No Anesthesia Results - Imaging EKG: image reviewed (EKG dated 11/15/2018 [Unconfirmed] - 104bpm ST) Additional studies: ECHO 11/16/2016 EV/EV echocardiogram Impressions: Technically suboptimal due to poor echocardiographic windows. Normal LV systolic function, LVEF 60-65%. Normal right ventricular size and function. No significant valvular dysfunction. Left Ventricular Wall Motion: Rest Echo Findings All wall segments showed normal motion. Anesthesia Exam O2 Sat Height 1.55 m Height 1.55 m Weight 100.244 kg Weight 100.244 kg O2 Sat by Pulse Oximetry 97 O2 Sat by Pulse Oximetry 97 Vital Signs Resp BP Pulse Ox 18 126/80 97 11/16/18 07:05 11/16/18 07:05 11/16/18 07:05 Height: 5'1" Weight: 223 # BMI = 42 NPO (# of Hours): Mnoc - HEENT Pupil (Motor): Pupils equal, EOMI Mallampati: III Teeth: Missing (lower), Edentulous (upper) Oral Opening: Greater than 3 - DITCH RIDER LOC: Oriented DITCH RIDER Motor: Normal RUE, Normal LUE, Normal RLE, Normal LLE, Normal Face DITCH RIDER Sensory: Normal: RUE, LUE, RLE, LLE, Face - Cardiac Rhythm: Regular Murmur: None - Pulmonary Breath Sounds: left Rales, left Rhonchi, bilateral Clear Respiratory Effort: Symmetrical Anesthesia Assess/Plan ASA Score: 3 (MO/BMI = 42, HTN. DM, SREE, COPD, WPW) Level of consciousness: Cooperative, Oriented, Tranquil Anesthetic Plan: General Monitoring Plan: Standard Monitors Recovery Plan: PACU Anes Supervising Prov Stmt: PT seen/evaluated, R&B discussed, questions answered and consent obtained. Gloria Treadwell MD
[2018-11-16] MEDS ORDERED: *HR* Succinylcholine 200 MG/10 ML VIAL IVP ONE ×2 (07:47→08:29)
[2018-11-16] MEDS ORDERED: *HR* Phenylephrine 10 MG/ML VIAL ONE (07:47)
[2018-11-16] MEDS ORDERED: *HR* Remifentanil 1 MG VIAL IVP ONE (07:47)
[2018-11-16] MEDS ORDERED: *HR* PHENYLEPHRINE 1,000 MCG/10 ML SYRINGE IVP ONE (07:47)
[2018-11-16] MEDS ORDERED: *HR* FentaNYL (PF) 100 MCG/2 ML VIAL ONE (07:47)
[2018-11-16] MEDS ORDERED: *HR* Rocuronium Bromide 50 MG/5 ML VIAL ONE (07:47)
[2018-11-16] MEDS ORDERED: Lidocaine -MPF 2% 2 ML VIAL ONE (07:47)
[2018-11-16] MEDS ORDERED: Dexamethasone 4 MG/ML VIAL ONE (07:47)
[2018-11-16] MEDS ORDERED: Lidocaine -MPF 4% 5 ML AMPUL ONE (07:47)
[2018-11-16] MEDS ORDERED: Ondansetron 4 MG/2 ML VIAL ONE ×2 (07:47→11:55)
[2018-11-16] MEDS ORDERED: *HR* Propofol 200 MG/20 ML VIAL IVP ONE (07:47)
[2018-11-16] MEDS ORDERED: *HR* Midazolam HCl 2 MG/2 ML VIAL ONE (07:50)
[2018-11-16] MEDS ORDERED: Bacitracin 50,000 UNIT, Polymyxin B Sulfate 500,000 UNIT, Sodium Chloride IRRigation 1,... IR ONE (08:15)
--- NOTE | 2018-11-16 08:17 | History & Physical Report ---
Date of Encounter: 11/16/18 Time of Encounter: 08:16 24 Hour HP Update - Instructions Instructions: If the History and Physical is less than 30 days old and was completed prior to A.M. admission and or procedure and has NOT been updated on calendar day of procedure please complete this update prior to performing procedure. - Update Patient reports changes in Medical Condition: No Changes in examination, assessment, or condition: No Changes in Medication: No Preop tests/diagnostics Reviewed: Yes Pre-Op MRSA Screen: Negative Surgery Remains Indicated: Yes Consent for Planned Operative Procedure(s) Verified: Yes - Pre-Operative Checklist Preoperative Checklist Indicated: No Prophylactic Antibiotic Ordered: Yes Home Medications Include Beta Dyllan: No Beta Dyllan Taken Today (Day of Surgery): No Beta Dyllan Taken Yesterday (Day Prior to Surgery): No Is VTE Prophylaxis Indicated?: Yes
[2018-11-16] MEDS ORDERED: *HR* Magnesium Sulfate 1 GM/2 ML VIAL ONE (09:09)
[2018-11-16] MEDS ORDERED: *HR* Vasopressin 20 UNIT/ML VIAL ONE (09:24)
[2018-11-16] MEDS ORDERED: Albumin Human 5% 0 GM/0 ML VIAL ONE (09:24)
[2018-11-16] MEDS ORDERED: *HR* HYDROMORPHONE 2 MG/ML VIAL ONE (11:35)
[2018-11-16] MEDS ORDERED: Neostigmine Methylsulfate 3 MG/3 ML SYRINGE ONE (12:07)
--- NOTE | 2018-11-16 12:14 | Orthopedic Operative Note ---
Date of procedure: 11/16/18 Pre-op diagnosis: Spondylolisthesis, lumbar stenosis, lumbar radiculopathy Post-op diagnosis: same Operation/Findings: Posterior lumbar interbody fusion L5-S1: The patient successfully underwent general endotracheal anesthesia. The patient was given antibiotics prior to the start of the procedure. Compression boots and stockings were used for deep vein thrombosis prophylaxis. A Contreras catheter was placed. Leads for neuro monitoring were placed on the upper and lower extremities. This included the cranium. The neuro monitoring personnel confirmed there were satisfactory readings prior to the start of the procedure. The patient was turned prone on the Julian table. The back was prepped and draped in the usual sterile fashion. An incision was was marked and centered over the involved L5-S1 levels in the mid line. The incision was deepened through the lumbar fascia. Bovie cautery and Villanueva elevators were used to reflect the paraspinal musculature at the lateral extent of the transverse processes of the involved L5 and S1 levels. Margarita clamps were placed over the L5 spinous process. An intraoperative lateral fluorograph was obtained. A conversation was held between the surgeon and radiologist and both confirmed we had the correct operative level. We then placed pedicle screws in standard fashion with the aid of fluoroscopy and anatomic landmarks. Briefly a starter awl was used. A gearshift was subsequently used to enter the alcohol and drug counselor hole via a transpedicular route into the vertebral body. The alcohol and drug counselor hole was tapped with an undersized instrument, and subsequently four 6.5 x 40 mm pedicle screws were placed bilaterally at the indicated L5 and S1 levels. The screws were tested with the aid of the neurologic monitoring staff via pedicle screw stimulation. All reading suggested there was no significant cortical wall breech. The screws were also evaluated fluoro- graphically and appeared to be in satisfactory position. We then turned our attention to the decompression portion of the procedure. We removed the supraspinous and interspinous ligaments and subsequently the insertion of the ligamentum flavum on the undersurface of the proximal L5 lamina was dislodged with a curette. We then removed the ligamentum flavum as well as undercut the facets at this L5-S1 level to decompress the lateral recesses. We also performed a L5 laminectomy. After the decompression, which was over and above that which was required to place the interbody graft, the foramen and traversing roots at this L5-S1 level were found to be free and patent. We also took part of the medial facets in order to aid in the decompression. We then protected the neural elements including the thecal sac and traversing nerve root on the right with a dural retractor. We made an annulotomy into the L5-S1 disc space and then removed entire disc material using Pituitary instruments. We trialed various size grafts after the endplates were prepared for graft insertion. A 10 x 26 enter body graft fit well within the L5-S1 disc space. We obtained some bone from the right posterior superior iliac spine through us a separate incision and combined with this with the bone which we had saved from the laminectomy portion of the procedure. This autograft bone was first placed in the anterior portion of the L5-S1 disc space and additional bone was placed within the interbody graft spacer. We then placed the interbody graft spacer obliquely across the L5-S1 disc space towards the midline while protecting the neural elements with a root retractor. When the graft was found to be in satisfactory position the printing plate clerk was removed. We then copiously irrigated the wound. We then decorticated the L5 transverse processes and proximal portion of the sacrum as well as the facet joints of the involved L5-S1 levels to aid in the posterolateral fusion. We placed autograft bone in the lateral gutters over these regions. We then placed rods within the screw heads of the involved L5-S1 levels and first locked the distal screws and then subsequently locked the proximal screws so as to improve and reduce the spondylolisthesis previously seen. We then closed the wound in layers with 1 Vicryl for the fascia, 2-0 Vicr yl. Subcutaneous tissue, and Dermabond was used for skin closure. Sterile dressings were placed over the wound. The patient was turned supine on a hospital bed and extubated. All sponge instruments and needle counts were correct at the end of the procedure. The patient tolerated the procedure well without complications. Anesthesia: GETA Surgeon: Channing Meza Jr Was there an clinic office assistant present: No Estimated blood loss (cc): 80 Specimen: None Condition: stable Disposition: PACU
--- NOTE | 2018-11-16 13:31 | Anesthesia Evaluation Post Op ---
Date of Encounter: 11/16/18 Time of Encounter: 13:30 - Vital Signs Vital Signs: Vital Signs/O2 Sat, Most Current Temp Pulse Resp BP Pulse Ox 97.8 F 87 16 112/70 93 11/16/18 12:58 11/16/18 13:18 11/16/18 13:18 11/16/18 13:18 11/16/18 13:18 - Lungs Lungs: Clear Ascult./Percussion - Airway Airway: Non-obstructed - Cardiovascular Regular Rate - Mental Status Mental Status: Asleep with brisk response to light stimulation - Pain Pain Scale: 5 Pain Scale used: Numeric (1 - 10) - Nausea Vomiting Nausea Vomiting: Not Present - Hydration Hydration: Ice chips, Contreras catheter - Discharge PostOp Status: Transfer Patient to floor
[2018-11-16] MEDS ORDERED: Acetaminophen 325 MG TABLET PO PRN (13:59)
[2018-11-16] MEDS ORDERED: Naloxone 0.4 MG/ML INJ IVP PRN (13:59)
[2018-11-16] MEDS ORDERED: Ondansetron 4 MG/2 ML VIAL IVP PRN (13:59)
[2018-11-16] MEDS: Gabapentin 300 MG CAPSULE PO SCH ×2 (15:47→21:12)
[2018-11-16] MEDS ORDERED: Methyl Salicylate/Menthol 57 APPL/57 GM TUBE TP PRN (16:26)
[2018-11-16] MEDS ORDERED: Dextrose Gel 15 GM/37.5 ML TUBE PO PRN ×2 (16:47)
[2018-11-16] MEDS ORDERED: *HR* Dextrose 50 % in Water (Syg) 50 ML SYRINGE IVP PRN (16:47)
[2018-11-16] MEDS ORDERED: D5% in Water 1,000 ML IVC PRN (16:47)
[2018-11-16] MEDS: Insulin LISPRO 300 UNITS/3 ML VIAL SQ SCH ×2 (19:34→21:12)
[2018-11-16] MEDS: DOXEPIN 10MG PO SCH (19:55)
[2018-11-16] MEDS ORDERED: NON-FORMULARY MEDICATION 1 EACH EACH (Diclofenac Sodium [Voltaren] 100 GM) TP SCH (21:00)
[2018-11-17] MEDS: *HR* HYDROcodone/Acet 5/325 mg TABLET PO PRN ×3 (01:11→16:04)
[2018-11-17 06:45] LABS: Hematocrit 28.9 % (35.3-44.9)
[2018-11-17 07:03] LABS: BUN/Creatinine Ratio 19 (6-26); Blood Urea Nitrogen 21 mg/dL (6-20); Calcium 8.5 mg/dL (8.6-10.3); Carbon Dioxide 25 mEq/L (23-29); Chloride 100 mEq/L (98-107); Glucose 443 mg/dL (70-105); Osmolality,Calculated 304 (280-300); Potassium 3.8 mEq/L (3.5-5.1); Sodium 136 mEq/L (136-145); eGFR For African Americans > 60 (> 60); eGFR For Non-African Americans 51 (> 60)
[2018-11-17 07:23] LABS: Hemoglobin 9.7 g/dL (11.5-15.4)
[2018-11-17] MEDS: Insulin LISPRO 300 UNITS/3 ML VIAL SQ SCH ×4 (08:19→22:21)
[2018-11-17] MEDS: *HR* Metformin 500 MG TABLET PO SCH (08:24)
[2018-11-17] MEDS: hydroCHLOROthiazide 25 MG TABLET PO SCH (08:26)
[2018-11-17] MEDS: Gabapentin 300 MG CAPSULE PO SCH ×3 (08:26→22:16)
[2018-11-17] MEDS: BuPROPion SR (12 HR) 150 MG TABLET PO SCH (08:27)
[2018-11-17] MEDS: *HR* OxyCODONE Immed Rel 5 MG TABLET PO PRN ×2 (11:53→22:16)
[2018-11-17] MEDS: DOXEPIN 10MG PO SCH (22:34)
--- NOTE | 2018-11-18 06:50 | Orthopedics Progress Note ---
Date of Encounter: 11/18/18 Time of Encounter: 12:00 - Assessment and Plan (1) Status post lumbar spinal fusion Current Visit: Yes Status: Acute (2) Lumbar radiculopathy Current Visit: Yes Status: Chronic (3) Lumbar stenosis Current Visit: Yes Status: Chronic Qualifiers: Neurogenic claudication status: unspecified Qualified Code(s): M48.061 - Spinal stenosis, lumbar region without neurogenic claudication (4) Spondylolisthesis Current Visit: Yes Status: Chronic Qualifiers: Spinal region: unspecified Qualified Code(s): M43.10 - Spondylolisthesis, site unspecified Subjective Principal diagnosis: s/p plif Interval history: s/p Posterior lumbar interbody fusion L5-S1 [Spondylolisthesis, lumbar stenosis, lumbar radiculopathy] 11/16/18 Patient seen at bedside. A&Ox3 Dressing and incision c/d/i No calf tenderness, erythema, or warmth. Neurovascularly intact b/l LE. Labwork, vitals, and medications reviewed. Pain control: Adequate Participating in therapy. All questions and concerns addressed. Educated on use of incentive spirometer, ambulation, and hydration. Patient educated on post-operative restrictions and care. Addressed: see above. Patient course and disposition discussed with Dr. Meza D/C plan:. inpt rehab once approved Objective Vital signs: Vital Signs Temp Pulse Resp BP Pulse Ox 11/17/18 22:51 99.4 F 107 20 106/63 97 11/17/18 19:22 98.6 F 118 20 105/71 96 11/17/18 14:42 98.2 F 102 14 100/65 98 11/17/18 10:37 98.1 F 103 16 112/78 97 11/17/18 07:00 98.0 F 103 15 116/68 96 Intake and Output 11/17/18 11/17/18 11/18/18 15:59 23:59 07:59 Intake Total 930 / 3020 590 / 3020 Output Total 0 / 1550 400 / 1550 325 / 325 Balance 930 / 1470 190 / 1470 -325 / -325 Intake: Oral 930 / 2020 590 / 2020 Output: Urine 0 / 400 400 / 400 325 / 325 Other: Meal Breakfast Dinner Percent of Meal Consumed 100% 100% # Voids 1 1 Blood Glucose* 253 311 - Labs CBC & BMP: 11/19/18 08:08 11/17/18 06:11 Labs: Abnormal lab results Hgb 9.7 g/dL (11.5-15.4) L D 11/17/18 06:11 Hct 28.9 % (35.3-44.9) L 11/17/18 06:11 BUN 21 mg/dL (6-20) H 11/17/18 06:11 Est GFR (Non-Af Amer) 51 (> 60) L 11/17/18 06:11 Glucose 443 mg/dL (70-105) H 11/17/18 06:11 POC Glucose 253 mg/dL (70-99) H 11/17/18 15:27 Calculated Osmolality 304 (280-300) H 11/17/18 06:11 Calcium 8.5 mg/dL (8.6-10.3) L 11/17/18 06:11 Consult Discharge Plan - Plan Instructions: Diabetes Mellitus Type 2 in Adults (DC), Chronic Obstructive Pulmonary Disease (DC) Referrals: Clyde Gooden DO [Primary Care Provider] - Prescriptions: Docusate Sodium [Colace] 100 mg PO BID 5 Days #10 capsule Prescription Printed OxyCODONE Immed Rel [Roxicodone 5 MG] 5 mg PO Q6HR PRN 5 Days #20 tablet PRN Reason: Severe Pain Prescription Printed
--- NOTE | 2018-11-18 06:50 | Orthopedics Progress Note ---
Date of Encounter: 11/17/18 Time of Encounter: 12:00 - Assessment and Plan (1) Spondylolisthesis Current Visit: Yes Status: Chronic Qualifiers: Spinal region: unspecified Qualified Code(s): M43.10 - Spondylolisthesis, site unspecified (2) Lumbar stenosis Current Visit: Yes Status: Chronic Qualifiers: Neurogenic claudication status: unspecified Qualified Code(s): M48.061 - Spinal stenosis, lumbar region without neurogenic claudication (3) Lumbar radiculopathy Current Visit: Yes Status: Chronic (4) Status post lumbar spinal fusion Current Visit: Yes Status: Acute Subjective Principal diagnosis: s/p plif Interval history: s/p Posterior lumbar interbody fusion L5-S1 [Spondylolisthesis, lumbar stenosis, lumbar radiculopathy] 11/16/18 Patient seen at bedside. A&Ox3 Dressing and incision c/d/i No calf tenderness, erythema, or warmth. Neurovascularly intact b/l LE. Labwork, vitals, and medications reviewed. Pain control: Adequate Participating in therapy. All questions and concerns addressed. Educated on use of incentive spirometer, ambulation, and hydration. Patient educated on post-operative restrictions and care. Addressed: see above. Patient course and disposition discussed with Dr. Meza D/C plan:. inpt rehab once accepted/approved Objective Vital signs: Vital Signs Temp Pulse Resp BP Pulse Ox 11/17/18 22:51 99.4 F 107 20 106/63 97 11/17/18 19:22 98.6 F 118 20 105/71 96 11/17/18 14:42 98.2 F 102 14 100/65 98 11/17/18 10:37 98.1 F 103 16 112/78 97 11/17/18 07:00 98.0 F 103 15 116/68 96 Intake and Output 11/17/18 11/17/18 11/18/18 15:59 23:59 07:59 Intake Total 930 / 3020 590 / 3020 Output Total 0 / 1550 400 / 1550 325 / 325 Balance 930 / 1470 190 / 1470 -325 / -325 Intake: Oral 930 / 2020 590 / 2020 Output: Urine 0 / 400 400 / 400 325 / 325 Other: Meal Breakfast Dinner Percent of Meal Consumed 100% 100% # Voids 1 1 Blood Glucose* 253 311 - Labs CBC & BMP: 11/19/18 08:08 11/17/18 06:11 Labs: Abnormal lab results Hgb 9.7 g/dL (11.5-15.4) L D 11/17/18 06:11 Hct 28.9 % (35.3-44.9) L 11/17/18 06:11 BUN 21 mg/dL (6-20) H 11/17/18 06:11 Est GFR (Non-Af Amer) 51 (> 60) L 11/17/18 06:11 Glucose 443 mg/dL (70-105) H 11/17/18 06:11 POC Glucose 253 mg/dL (70-99) H 11/17/18 15:27 Calculated Osmolality 304 (280-300) H 11/17/18 06:11 Calcium 8.5 mg/dL (8.6-10.3) L 11/17/18 06:11 Consult Discharge Plan - Plan Instructions: Diabetes Mellitus Type 2 in Adults (DC), Chronic Obstructive Pulmonary Disease (DC) Referrals: Clyde Gooden DO [Primary Care Provider] - Prescriptions: Docusate Sodium [Colace] 100 mg PO BID 5 Days #10 capsule Prescription Printed OxyCODONE Immed Rel [Roxicodone 5 MG] 5 mg PO Q6HR PRN 5 Days #20 tablet PRN Reason: Severe Pain Prescription Printed
[2018-11-18] MEDS: hydroCHLOROthiazide 25 MG TABLET PO SCH (08:54)
[2018-11-18] MEDS: *HR* OxyCODONE Immed Rel 5 MG TABLET PO PRN ×3 (08:54→18:19)
[2018-11-18] MEDS: Insulin LISPRO 300 UNITS/3 ML VIAL SQ SCH ×4 (08:55→20:51)
[2018-11-18] MEDS: BuPROPion SR (12 HR) 150 MG TABLET PO SCH (08:55)
[2018-11-18] MEDS: Gabapentin 300 MG CAPSULE PO SCH ×3 (08:55→20:52)
[2018-11-18] MEDS: *HR* Metformin 500 MG TABLET PO SCH (08:55)
[2018-11-18] MEDS: DOXEPIN 10MG PO SCH (20:52)
[2018-11-19] MEDS: *HR* OxyCODONE Immed Rel 5 MG TABLET PO PRN ×4 (03:51→18:24)
[2018-11-19 08:22] LABS: Hematocrit 30.4 % (35.3-44.9)
[2018-11-19] MEDS: Insulin LISPRO 300 UNITS/3 ML VIAL SQ SCH ×3 (09:08→17:18)
[2018-11-19] MEDS: *HR* Metformin 500 MG TABLET PO SCH (09:10)
[2018-11-19] MEDS: BuPROPion SR (12 HR) 150 MG TABLET PO SCH (09:10)
[2018-11-19] MEDS: Gabapentin 300 MG CAPSULE PO SCH ×2 (09:10→15:43)
[2018-11-19] MEDS: hydroCHLOROthiazide 25 MG TABLET PO SCH (09:10)
--- NOTE | 2018-11-19 10:44 | Discharge Summary ---
Date of Encounter: 11/19/18 Time of Encounter: 10:42 - Discharge Diagnosis (1) Status post lumbar spinal fusion Priority: Primary Status: Acute (2) Lumbar radiculopathy Priority: Primary Status: Chronic (3) Lumbar stenosis Priority: Primary Status: Chronic Qualifiers: Neurogenic claudication status: unspecified Qualified Code(s): M48.061 - Spinal stenosis, lumbar region without neurogenic claudication (4) Spondylolisthesis Priority: Primary Status: Chronic Qualifiers: Spinal region: unspecified Qualified Code(s): M43.10 - Spondylolisthesis, site unspecified - Hospital Course Hospital course: Ms. Nur is a 53 year old female The patient's postoperative course was uneventful. Progressed from intravenous analgesic needs to oral analgesic needs only. Remained neurovascularly intact and mobilized satisfactorily. All radiographic studies were satisfactory per Dr. Meza. Patient course and disposition was followed by Dr. Meza Patient seen by Dr. Meza as discharging physician on this day. Patient is discharged to rehab with plan for rehabilitation and outpatient orthopedic follow up has been arranged. - Time Spent with Patient Total time spent providing and/or coordinating discharge services: - Discharge Medications Prescriptions: New Docusate Sodium [Colace] 100 mg PO BID 5 Days #10 capsule OxyCODONE Immed Rel [Roxicodone 5 MG] 5 mg PO Q6HR PRN 5 Days #20 tablet PRN Reason: Severe Pain Continued Albuterol Sulfate [Proventil Inhaler] 2 puff IH Q4HR PRN #1 unit PRN Reason: Wheezing hydroCHLOROthiazide [Hydrochlorothiazide] 25 mg PO DAILY Oxybutynin [Ditropan] 5 mg PO TID BuPROPion SR (12 HR) [Wellbutrin SR] 150 mg PO DAILY Ibuprofen [Ibu] 800 mg PO BID PRN PRN Reason: Pain Gabapentin [Neurontin] 600 mg PO TID Doxepin HCl 10 mg PO HS Diclofenac Sodium [Voltaren] 100 gm TP BID metFORMIN [Glucophage] 500 mg PO 0800 #30 tablet Home Medications: Albuterol Sulfate [Proventil Inhaler] 2 puff IH Q4HR PRN #1 unit 07/13/16 [Rx] BuPROPion SR (12 HR) [Wellbutrin SR] 150 mg PO DAILY 11/16/16 [History] Oxybutynin [Ditropan] 5 mg PO TID 11/16/16 [History] hydroCHLOROthiazide [Hydrochlorothiazide] 25 mg PO DAILY 11/16/16 [History] metFORMIN [Glucophage] 500 mg PO 0800 #30 tablet 05/19/18 [Rx] Diclofenac Sodium [Voltaren] 100 gm TP BID 11/16/18 [History] Doxepin HCl 10 mg PO HS 11/16/18 [History] Gabapentin [Neurontin] 600 mg PO TID 11/16/18 [History] Ibuprofen [Ibu] 800 mg PO BID PRN 11/16/18 [History] Docusate Sodium [Colace] 100 mg PO BID 5 Days #10 capsule 11/18/18 [Rx] OxyCODONE Immed Rel [Roxicodone 5 MG] 5 mg PO Q6HR PRN 5 Days #20 tablet 11/18/18 [Rx] Allergies/Adverse Reactions: Allergy/AdvReac Type Severity Reaction Status Date / Time No Known Allergies Allergy Verified 11/16/18 07:00 Date of admission: 11/16/18 13:52 Primary care physician: Clyde Gooden DO Consults: 11/16/18 13:59 Consult to Occupational Therapy [CONS] Routine Comment: Evaluate, develop and implement POC Reason for Consult: Postoperative rehabilitation Does patient have active BEDREST order?: No Is patient medically & hemodynamically stable?: Yes Patient assessed for mobility or mobilized this visit?: No Consult to Physical Therapy [CONS] Routine Comment: Evaluate, develop and implement POC Reason for Consult: Postoperative rehabilitation Does patient have active BEDREST order?: No Is patient medically & hemodynamically stable?: Yes Patient assessed for mobility or mobilized this visit?: No Consult to Spine Navigator [CONS] [CONS] Routine 11/18/18 12:44 Consult to Base Loader [CONS] Routine Reason for SW Consult: potential needs on d/c Discharging clinician: Channing Meza Jr Anticipated date of discharge: 11/19/18 - VTE Documentation of Mechanical Device: Graduated compression elastic hosiery Labs on day of discharge: Labs from last 24 hours 11/19/18 11/18/18 11/18/18 08:08 20:39 11:32 Hgb 10.0 L Hct 30.4 L POC Glucose 182 H 193 H 11/18/18 11/17/18 07:08 21:12 Hgb Hct POC Glucose 218 H 311 H - Impressions ITS Impressions Fluoroscopy 11/16/18 12:27 IMPRESSION: Intraprocedural fluoroscopic spot images as above. See separate procedure report for more information. D/ / Salbador Schulz MD / Salbador Schulz MD Interpreting Provider: Salbador Schulz MD Lumbar Spine X-Ray 11/16/18 12:27 IMPRESSION: Intraprocedural fluoroscopic spot images as above. See separate procedure report for more information. D/ / Salbador Schulz MD / Salbador Schulz MD Interpreting Provider: Salbador Schulz MD Lumbar Spine X-Ray 11/19/18 08:54 IMPRESSION: Pedicle screw and jim fusion at L4-L5 for spondylolisthesis. No evidence of hardware failure. No acute finding. D/ / 11/19/2018 10:00:52 Anushka Randolph MD / mercedes Interpreting Provider: Anushka Randolph MD - Patient Status Disposition: Transfer Inpatient Rehab Fac Condition: Good Functional capacity at discharge: uses cane/walker Overall status at discharge: patient is progressing back to baseline - Discharge Instructions Instructions: Diabetes Mellitus Type 2 in Adults (DC), Chronic Obstructive Pulmonary Disease (DC) Follow Up With: Clyde Gooden DO [Primary Care Provider] - - Diet and Activity Activity: as per physical therapy Diet: advance to your usual diet
[2018-11-19 17:41] VITALS: BP 119/78
== END 2018-11-19 18:55 | DRG 460 ==
LOC: SAMDAY 06:16 → 3NENU 13:52
PROVIDERS: ADMIT Orthopaedic Surgery Orthopaedic Surgery of the Spine; ATTEND Orthopaedic Surgery Orthopaedic Surgery of the Spine

== ENCOUNTER 2020-01-23 06:30 | Inpatient (IN) ==
[~2020-01-23 06:30] MED LIST: Acetaminophen IV 1,000 MG/100 ML INFUS..BTL IVPB ONE; Bacitracin 50,000 UNIT, Polymyxin B Sulfate 500,000 UNIT, Sodium Chloride IRRigation 1,... IR ONE; Famotidine 20 MG/2 ML VIAL IVP ONE; Pregabalin 50 MG CAPSULE PO ONE
[2020-01-23] MEDS ORDERED: CeFAZolin Syr 2,000MG/20 ML 2,000 MG/20 ML SYRINGE IVPB ONE (07:07)
[2020-01-23] MEDS ORDERED: *HR* Propofol 200 MG/20 ML VIAL IVP ONE (07:11)
[2020-01-23] MEDS ORDERED: *HR* FentaNYL (PF) 100 MCG/2 ML VIAL ONE (07:11)
[2020-01-23] MEDS ORDERED: Lidocaine -MPF 2% 2 ML VIAL ONE (07:14)
[2020-01-23] MEDS ORDERED: *HR* Midazolam HCl 2 MG/2 ML VIAL ONE (07:14)
[2020-01-23] MEDS ORDERED: Lidocaine HCL 4 ML Topical Solution (Laryng-O-Jet Kit Sterile Pak) TP ONE (07:14)
[2020-01-23] MEDS ORDERED: Ondansetron 4 MG/2 ML VIAL ONE (07:14)
[2020-01-23] MEDS ORDERED: *HR* Succinylcholine 200 MG/10 ML VIAL IVP ONE (07:14)
[2020-01-23] MEDS ORDERED: Dexamethasone 4 MG/ML VIAL ONE (07:14)
[2020-01-23] MEDS ORDERED: *HR* Rocuronium Bromide 50 MG/5 ML VIAL ONE (07:14)
[2020-01-23] MEDS ORDERED: Ringers Solution, Lactated 1,000 ML IVC SCH (07:15)
[2020-01-23] MEDS ORDERED: SODIUM CHLORIDE 0.9% IV ONE (07:22)
[2020-01-23] MEDS ORDERED: *HR* Remifentanil 1 MG VIAL IVP ONE ×3 (07:22→10:41)
[2020-01-23] MEDS ORDERED: INSULIN HUMAN REGULAR IV ONE (07:22)
[2020-01-23] MEDS ORDERED: Naloxone 0.4 MG/ML INJ IVP PRN ×2 (07:23→13:06)
[2020-01-23] MEDS ORDERED: flumazeniL 0.5 MG/5 ML VIAL IVP PRN (07:23)
[2020-01-23] MEDS ORDERED: *HR* HYDROmorphone PF 0.5 MG/0.5 ML SYRINGE IVP PRN (07:23)
[2020-01-23] MEDS ORDERED: *HR* FentaNYL (PF) 100 MCG/2 ML VIAL IVP PRN (07:23)
[2020-01-23] MEDS ORDERED: Ondansetron 4 MG/2 ML VIAL IVP PRN (07:23)
[2020-01-23] MEDS ORDERED: EPHEDrine 50 MG/ML VIAL ONE (07:30)
[2020-01-23] MEDS ORDERED: *HR* Phenylephrine 10 MG/ML VIAL ONE (07:30)
[2020-01-23] MEDS ORDERED: *HR* HYDROMORPHONE 2 MG/ML VIAL ONE (11:38)
[2020-01-23] MEDS ORDERED: Acetaminophen 325 MG TABLET PO PRN (13:06)
[2020-01-23] MEDS: Ondansetron 4 MG/2 ML VIAL IVP PRN ×2 (13:26→23:14)
[2020-01-23] MEDS: Ringers Solution, Lactated 1,000 ML IVC SCH ×2 (13:27→23:24)
[2020-01-23] MEDS ORDERED: *HR* Dextrose 50 % in Water (Vial) 50 ML VIAL IVP PRN (15:08)
[2020-01-23] MEDS ORDERED: D5% in Water 1,000 ML IVC PRN (15:08)
[2020-01-23] MEDS ORDERED: Dextrose Gel 15 GM/37.5 ML TUBE PO PRN ×2 (15:08)
[2020-01-23 15:36] LABS: Basophils # 0.1 K/mcL (0.0-0.2); Basophils % 0.4 %; Hematocrit 38.9 % (35.3-44.9); Hemoglobin 12.2 g/dL (11.5-15.4); Immature Granulocytes % 1.2 % (0-4); Lymphocytes # 1.3 K/mcL (0.6-4.6); Lymphocytes % 7.3 %; Mean Corpuscular HGB Conc 31.4 g/dL (31.6-35.5); Mean Corpuscular Hemoglobin 30.1 pg (28.0-33.3); Monocytes # 0.3 K/mcL (0.0-1.3); Monocytes % 1.8 %; Platelet Count 266 K/mcL (140-400); Red Blood Count 4.05 M/mcL (3.82-4.97); Red Cell Distribution Width 11.6 % (11.5-14.5); Segmented Neutrophils % 89.3 %; White Blood Count 17.9 K/mcL (4.3-11.1)
[2020-01-23] MEDS: CeFAZolin 2 GM/120 ML BAG IVPB SCH (15:48)
[2020-01-23 15:50] LABS: Alanine Aminotransferase 69 Units/L (7-52); Albumin/Globulin Ratio 1.4 (1.1-2.2); Alkaline Phosphatase 111 Units/L (34-104); Aspartate Amino Transferase 92 Units/L (13-39); BUN/Creatinine Ratio 18 (6-26); Bilirubin,Total 0.4 mg/dL (0.3-1.0); Blood Urea Nitrogen 21 mg/dL (6-20); Calcium 8.8 mg/dL (8.6-10.3); Carbon Dioxide 20 mEq/L (23-29); Chloride 98 mEq/L (98-107); Globulin 2.9 g/dL (2.4-3.5); Glucose 371 mg/dL (70-105); Osmolality,Calculated 300 (280-300); Potassium 3.9 mEq/L (3.5-5.1); Sodium 136 mEq/L (136-145); Total Protein 6.9 g/dL (6.4-8.9); Troponin I < 0.03 ng/mL (< 0.04); eGFR For African Americans 59 (> 60); eGFR For Non-African Americans 49 (> 60)
[2020-01-23] MEDS ORDERED: *HR* Metformin 500 MG TABLET PO SCH (17:00)
[2020-01-23] MEDS: Insulin LISPRO 300 UNITS/3 ML VIAL SQ SCH (17:13)
[2020-01-23] MEDS: *HR* HYDROcodone/Acet 5/325 mg TABLET PO PRN (23:15)
[2020-01-24] MEDS: CeFAZolin 2 GM/120 ML BAG IVPB SCH (00:02)
[2020-01-24] MEDS: Insulin LISPRO 300 UNITS/3 ML VIAL SQ SCH ×6 (00:36→21:22)
[2020-01-24] MEDS ORDERED: 0.9 % Sodium Chloride 1,000 ML IVC SCH (08:00)
[2020-01-24 08:54] LABS: Alanine Aminotransferase 36 Units/L (7-52); Albumin 3.6 g/dL (3.5-5.7); Albumin/Globulin Ratio 1.4 (1.1-2.2); Alkaline Phosphatase 89 Units/L (34-104); Aspartate Amino Transferase 29 Units/L (13-39); BUN/Creatinine Ratio 21 (6-26); Bilirubin,Total 0.3 mg/dL (0.3-1.0); Blood Urea Nitrogen 20 mg/dL (6-20); Carbon Dioxide 25 mEq/L (23-29); Chloride 102 mEq/L (98-107); Globulin 2.6 g/dL (2.4-3.5); Glucose 286 mg/dL (70-105); Osmolality,Calculated 297 (280-300); Potassium 4.6 mEq/L (3.5-5.1); Sodium 137 mEq/L (136-145); Total Protein 6.2 g/dL (6.4-8.9); eGFR For African Americans > 60 (> 60); eGFR For Non-African Americans > 60 (> 60)
[2020-01-24 09:18] LABS: Basophils # 0.1 K/mcL (0.0-0.2); Basophils % 0.3 %; Hematocrit 34.6 % (35.3-44.9); Hemoglobin 11.2 g/dL (11.5-15.4); Lymphocytes # 2.9 K/mcL (0.6-4.6); Mean Corpuscular HGB Conc 32.4 g/dL (31.6-35.5); Mean Corpuscular Hemoglobin 29.6 pg (28.0-33.3); Mean Corpuscular Volume 91.5 fL (83.0-100.0); Monocytes # 1.5 K/mcL (0.0-1.3); Monocytes % 6.1 %; Neutrophils # 19.3 K/mcL (1.6-8.9); Platelet Count 245 K/mcL (140-400); Red Blood Count 3.78 M/mcL (3.82-4.97); Red Cell Distribution Width 11.8 % (11.5-14.5); Segmented Neutrophils % 80.6 %; White Blood Count 23.9 K/mcL (4.3-11.1)
[2020-01-24] MEDS: hydroCHLOROthiazide 25 MG TABLET PO SCH (09:32)
[2020-01-24] MEDS: *HR* OxyCODONE Immed Rel 5 MG TABLET PO PRN ×3 (09:32→21:03)
[2020-01-25] MEDS: *HR* OxyCODONE Immed Rel 5 MG TABLET PO PRN ×5 (01:06→23:16)
[2020-01-25] MEDS: Ondansetron 4 MG/2 ML VIAL IVP PRN (09:00)
[2020-01-25] MEDS: hydroCHLOROthiazide 25 MG TABLET PO SCH (09:01)
[2020-01-25] MEDS: Insulin LISPRO 300 UNITS/3 ML VIAL SQ SCH ×4 (09:02→20:33)
[2020-01-25 13:31] LABS: Basophils # 0.1 K/mcL (0.0-0.2); Basophils % 0.4 %; Eosinophils % 0.2 %; Hematocrit 36.3 % (35.3-44.9); Hemoglobin 11.6 g/dL (11.5-15.4); Immature Granulocytes % 0.7 % (0-4); Lymphocytes # 2.3 K/mcL (0.6-4.6); Lymphocytes % 12.4 %; Mean Corpuscular Hemoglobin 29.8 pg (28.0-33.3); Mean Corpuscular Volume 93.3 fL (83.0-100.0); Mean Platelet Volume 11.3 fL (9.4-12.4); Monocytes # 1.5 K/mcL (0.0-1.3); Monocytes % 7.8 %; Neutrophils # 14.8 K/mcL (1.6-8.9); Platelet Count 276 K/mcL (140-400); Red Blood Count 3.89 M/mcL (3.82-4.97); Red Cell Distribution Width 11.9 % (11.5-14.5); Segmented Neutrophils % 78.5 %; White Blood Count 18.8 K/mcL (4.3-11.1)
[2020-01-25 13:48] LABS: Alanine Aminotransferase 27 Units/L (7-52); Albumin 3.9 g/dL (3.5-5.7); Albumin/Globulin Ratio 1.3 (1.1-2.2); Alkaline Phosphatase 104 Units/L (34-104); Aspartate Amino Transferase 19 Units/L (13-39); BUN/Creatinine Ratio 16 (6-26); Bilirubin,Total 0.6 mg/dL (0.3-1.0); Blood Urea Nitrogen 15 mg/dL (6-20); Calcium 8.8 mg/dL (8.6-10.3); Carbon Dioxide 30 mEq/L (23-29); Chloride 95 mEq/L (98-107); Globulin 2.9 g/dL (2.4-3.5); Glucose 223 mg/dL (70-105); Osmolality,Calculated 286 (280-300); Potassium 3.9 mEq/L (3.5-5.1); Sodium 134 mEq/L (136-145); Total Protein 6.8 g/dL (6.4-8.9); eGFR For African Americans > 60 (> 60); eGFR For Non-African Americans > 60 (> 60)
[2020-01-26 04:51] LABS: Basophils # 0.1 K/mcL (0.0-0.2); Basophils % 0.4 %; Eosinophils # 0.1 K/mcL (0.0-0.6); Eosinophils % 0.6 %; Hemoglobin 10.8 g/dL (11.5-15.4); Immature Granulocytes % 0.4 % (0-4); Lymphocytes # 2.1 K/mcL (0.6-4.6); Lymphocytes % 14.9 %; Mean Corpuscular HGB Conc 31.8 g/dL (31.6-35.5); Mean Corpuscular Volume 94.4 fL (83.0-100.0); Mean Platelet Volume 11.4 fL (9.4-12.4); Monocytes % 7.5 %; Neutrophils # 10.5 K/mcL (1.6-8.9); Platelet Count 222 K/mcL (140-400); Red Cell Distribution Width 11.8 % (11.5-14.5); Segmented Neutrophils % 76.2 %; White Blood Count 13.8 K/mcL (4.3-11.1)
[2020-01-26 04:59] LABS: Alanine Aminotransferase 95 Units/L (7-52); Albumin 3.7 g/dL (3.5-5.7); Albumin/Globulin Ratio 1.3 (1.1-2.2); Alkaline Phosphatase 174 Units/L (34-104); Aspartate Amino Transferase 132 Units/L (13-39); BUN/Creatinine Ratio 19 (6-26); Bilirubin,Total 0.7 mg/dL (0.3-1.0); Blood Urea Nitrogen 17 mg/dL (6-20); Calcium 8.5 mg/dL (8.6-10.3); Carbon Dioxide 29 mEq/L (23-29); Chloride 98 mEq/L (98-107); Globulin 2.8 g/dL (2.4-3.5); Glucose 265 mg/dL (70-105); Osmolality,Calculated 281 (280-300); Potassium 3.5 mEq/L (3.5-5.1); Sodium 130 mEq/L (136-145); Total Protein 6.5 g/dL (6.4-8.9); eGFR For African Americans > 60 (> 60); eGFR For Non-African Americans > 60 (> 60)
[2020-01-26] MEDS: *HR* OxyCODONE Immed Rel 5 MG TABLET PO PRN ×3 (05:28→13:18)
[2020-01-26] MEDS: hydroCHLOROthiazide 25 MG TABLET PO SCH (09:29)
[2020-01-26] MEDS: Insulin LISPRO 300 UNITS/3 ML VIAL SQ SCH ×3 (09:32→17:35)
[2020-01-26] MEDS: *HR* HYDROcodone/Acet 5/325 mg TABLET PO PRN ×2 (10:45→17:31)
[2020-01-26] MEDS: *HR* Metformin 500 MG TABLET PO SCH (17:31)
[2020-01-26] MEDS ORDERED: *HR* LORazepam 2 MG/ML VIAL IVP ONE (18:16)
[2020-01-26] MEDS: Pregabalin 75 MG CAPSULE PO SCH (20:08)
[2020-01-26] MEDS ORDERED: Insulin LISPRO 300 UNITS/3 ML VIAL SQ SCH (21:00)
[2020-01-27] MEDS: hydroCHLOROthiazide 25 MG TABLET PO SCH (08:19)
[2020-01-27] MEDS: *HR* Metformin 500 MG TABLET PO SCH ×2 (08:27→16:46)
[2020-01-27] MEDS: *HR* OxyCODONE Immed Rel 5 MG TABLET PO PRN ×3 (08:27→16:46)
[2020-01-27] MEDS: Pregabalin 75 MG CAPSULE PO SCH (08:28)
[2020-01-27] MEDS: Insulin LISPRO 300 UNITS/3 ML VIAL SQ SCH ×3 (08:35→17:47)
[2020-01-27] MEDS ORDERED: lisinopriL 5 MG TABLET PO SCH (09:00)
[2020-01-27 15:20] VITALS: BP 118/79
[2020-01-27] MEDS: *HR* HYDROcodone/Acet 5/325 mg TABLET PO PRN (18:45)
== END 2020-01-27 19:01 | DRG 454 ==
LOC: SAMDAY 06:30 → 3NENU 13:25
PROVIDERS: ADMIT Orthopaedic Surgery Orthopaedic Surgery of the Spine; ATTEND Orthopaedic Surgery Orthopaedic Surgery of the Spine